=== PATIENT | male | born 2000 | race Caucasian/White ===

== ENCOUNTER 2023-06-11 22:26 | Emergency (ER) | payer OTHER, SELFPAY ==
[2023-06-11 22:38] VITALS: BP 142/70
[2023-06-12 00:27] VITALS: BP 122/60; BMI 29.8
--- NOTE | 2023-06-12 00:29 | EDRN ---
Pt went to the bathroom around 1999 and noted swelling of his penis. Pt able to urinate without difficulty - no burning/pain/blood. Pt has urinated since 1999. Pt denies pain/swelling of testicles and pain in his penis. No drainage.
--- NOTE | 2023-06-12 00:49 | ED.GENMED ---
History of Present Illness
General
Chief Complaint: Male Genito-Urinary Symptoms
Source: patient
Exam Limitations: none
Time Seen by Provider: 06/12/23 00:20
Nursing documentation reviewed up to this point in time: agreed with
Travel History
Have you had any contact with someone who has COVID-19?: No
Do you have any symptoms of coronavirus? Fever > 100 degrees, chills, cough, shortness of breath, sore throat, loss of taste or smell, muscle aches, or headache?: No
History of Present Illness
History of Present Illness:
23-year-old male presents emergency department complaining of penile shaft swelling. This occurred about 2 hours prior to arrival when he was getting out of the shower. He denies any trauma. Denies any infection. He states it was a very tiny
scab that he picked off on the right side.
Past History
Past History
ED Past Medical History: None
Social History
Tobacco: Non-smoker
Alcohol: None
Drug: None
Living: with family
Review of Systems
Review of Systems
Allergies reviewed?: Yes
All Other Systems: Not applicable
Constitutional: Reports no symptoms
EENT: Reports no symptoms
Respiratory: Reports no symptoms
Cardiac: Reports no symptoms
ABD/GI: Reports no symptoms
: Reports other (Penile shaft swelling); Denies discharge
Musculoskeletal: Reports no symptoms
Skin: Reports no symptoms
Neurological: Reports no symptoms
Endocrine: Reports no symptoms
Hematologic/Lymphatic: Reports no symptoms
Psychiatric: Reports no symptoms
Phy Exam
General Physical Exam
General Presentation: well appearing and no apparent distress
General Skin: warm and dry
General Habitus: normal
General Mental: alert
Gastrointestinal Exam
Gastrointestinal Exam: non tender, soft and non distended
Genitourinary Exam Male
Exam Male: circumcised, no CVAT, no discharge, normal testicular exam, no evidence of trauma, no testicular swelling and other (Mild swelling of foreskin and penile shaft)
Course
Vital Signs
Initial and Last Documented VS:
Initial Vital Signs
Temp Pulse Resp BP Pulse Ox
97.9 F 62 18 142/70 98
06/11/23 22:38 06/11/23 22:38 06/11/23 22:38 06/11/23 22:38 06/11/23 22:38
Last Documented Vital Signs
Temp Pulse Resp BP Pulse Ox
97.9 F 59 14 122/60 99
06/11/23 22:38 06/12/23 00:27 06/12/23 00:27 06/12/23 00:27 06/12/23 00:27
MDM/Problems Addressed
Differential Diagnosis Includes:
Priapism, balanitis
MDM/Problems Addressed:
23-year-old male with balanitis, possibly allergic related. No signs of priapism or serious infection. Discharge to follow-up with urology.
*Pulse Oximetry
Patient hypoxic: no
*EKG
Interpreted by ED Provider?: NA
*Book Reviewer Interpretation
Rate: Book Reviewer- N/A
*Critical Care Note
Total Time (30-74mins, 75-104mins- exclusive of procedures): Not Applicable
Patient Management
Social determinants of health affecting care: Living situation
Escalation/DeEscalation of care consider admission/obs:
Admit not indicated
ED Attending Note
-
Portions of this chart may have been created with voice recognition software.� Occasional wrong word or��sound alike� substitutions may have occurred due to the inherent limitations of voice recognition software.
Discharge Plan
Departure
Patient Disposition: Home (Routine Discharge)
Date of Disposition: 06/12/23
Time of Disposition: 00:54
Patient with high blood pressure during this ER visit?: Yes
Condition: Good
Discharge Problem:
Balanitis
Instructions: BLOOD PRESSURE
Prescriptions:
New
clotrimazole 1 % cream
1 applic topical BID Qty: 15 0RF
Rx Instructions:
apply to foreskin
Referrals:
Geovanny Squires Jr., MD [Active] - Call in 1-3 days for appt
Interventions
Interventions:
*Risk Screen - Suicide Last Done: 06/11/23 22:38
*General Assessment Last Done: 06/12/23 00:27
*Neglect/Abuse Screening Last Done: 06/11/23 22:38
*ED COVID-19 Vaccine History Last Done: 06/12/23 00:27
ED-Male Genitourinary Assessment Last Done: 06/12/23 00:27
--- NOTE | 2023-06-12 01:11 | EDRN ---
Called pharmacy for gorimin
[2023-06-12] MEDS: LOTRIMIN 1% CREAM 1 APPLIC TOPICAL (01:31)
== END 2023-06-12 01:35 | disposition home or self-care (01) ==
LOC: EMR 22:26
PROVIDERS: EMERGENCY PHYSICIAN Emergency Medicine; FAMILY PHYSICIAN Pediatrics
DX: N48.1 Balanitis (principal); R03.0 Elevated blood-pressure reading, without diagnosis of hypertension
CPT/HCPCS: 99283

== ENCOUNTER → 2024-01-16 17:04 | Outpatient (REF) | payer OTHER, SELFPAY | LOC: UCDH 17:04 | PROVIDERS: ATTENDING PHYSICIAN Emergency Medicine | DX: R05.1 Acute cough (principal) | CPT/HCPCS: 71046 ==